=== PATIENT | male | born 1990 | race Two or more races ===

== ENCOUNTER 2020-12-05 19:19 | Emergency (ER) | payer OTHER ==
[~2020-12-05] VITALS: Ht 172.7 cm; Wt 86.2 kg
[2020-12-05 20:36] LABS: Urine Bacteria NONE SEEN /hpf (None Seen); Urine Blood Negative /uL (Negative); Urine Mucus FEW (None Seen); Urine Specific Gravity 1.009 (1.001-1.035); Urine WBC <1 /hpf (0 - 3)
[2020-12-05 20:53] LABS: Amphetamine Screen, Urine NEGATIVE (NEGATIVE); Barbiturate Scree,Urine NEGATIVE (NEGATIVE); Benzodiazephine Screen, Urine NEGATIVE (NEGATIVE); Cannabinoid Screen, Urine NEGATIVE (NEGATIVE); Cocaine Screen, Urine NEGATIVE (NEGATIVE); Opiate Scree,Urine NEGATIVE (NEGATIVE); Phencyclidine Screen, Urine NEGATIVE (NEGATIVE)
[2020-12-05 21:04] LABS: Basophils # (auto) 0 10 ^3/uL (0-0.2); Basophils % (auto) 0.5 % (0.0-2.0); Eosinophils # (auto) 0.4 10 ^3/uL (0-0.8); Eosinophils % (auto) 4.9 % (0.0-7.0); Hematocrit 44.4 % (41.0-53.0); Lymphocytes # (auto) 2.4 10 ^3/uL (0.4-5.4); Lymphocytes % (auto) 32.1 % (10.0-50.0); Mean Corpuscular Hemoglobin 30.7 pg (28.0-32.0); Mean Corpuscular Hgb Conc. 33.8 g/dL (32.0-36.0); Mean Corpuscular Volume 90.8 fL (80.0-100.0); Monocytes # (auto) 0.8 10 ^3/uL (0-1.3); Monocytes % (auto) 10.4 % (0.0-12.0); Neutrophils # (auto) 3.8 10 ^3/uL (1.6-8.6); Neutrophils % (auto) 52.1 % (37.0-80.0); Nucleated Red Blood Cells % 0.2 %; Platelet Count (auto) 370 10^3/uL (140-450); Red Blood Cells 4.89 10^6/uL (4.5-5.90); White Blood Cell 7.4 10^3/uL (4.4-10.8)
[2020-12-05 21:21] LABS: Potassium 3.7 mmol/L (3.5-5.1)
[2020-12-05 21:25] LABS: Salicylate < 1.7 mg/dL (2.8-20.0)
[2020-12-05 21:26] LABS: Acetaminophen < 2.0 ug/mL (10-30)
[2020-12-05 21:27] LABS: Albumin 3.8 g/dL (3.4-5.0); BUN/Creatinine Ratio 14.8; Magnesium 2.3 mg/dL (1.6-2.6)
[2020-12-05 21:29] LABS: Bilirubin, Total 0.2 mg/dL (0.2-1.0); Total Protein 7.9 g/dL (6.4-8.2)
[2020-12-06 08:04] VITALS: BP 131/80
== END 2020-12-06 08:41 | disposition home or self-care (01) ==
LOC: EDBD 19:19 → ER 19:19
DX: F10.129 Alcohol abuse with intoxication, unspecified (principal); R41.82 Altered mental status, unspecified; Y90.8 Blood alcohol level of 240 mg/100 ml or more
CPT/HCPCS: 36415; 80053; 80307; 80320; 80329; 81001; 83735; 85025

== ENCOUNTER 2023-03-30 08:56 | Emergency (ER) | payer MEDICAID, OTHER ==
[~2023-03-30] VITALS: Ht 177.8 cm; Wt 81.8 kg
[2023-03-30 09:27] LABS: Basophils # (auto) 0 10 ^3/uL (0-0.2); Basophils % (auto) 0.3 % (0.0-2.0); Eosinophils # (auto) 0.4 10 ^3/uL (0-0.8); Eosinophils % (auto) 5.5 % (0.0-7.0); Hematocrit 42.9 % (41.0-53.0); Hemoglobin 14.6 g/dL (13.5-17.5); Lymphocytes # (auto) 1.9 10 ^3/uL (0.4-5.4); Lymphocytes % (auto) 27.8 % (10.0-50.0); Mean Corpuscular Hemoglobin 30.2 pg (28.0-32.0); Mean Corpuscular Volume 88.8 fL (80.0-100.0); Monocytes % (auto) 14.8 % (0.0-12.0); Neutrophils # (auto) 3.6 10 ^3/uL (1.6-8.6); Neutrophils % (auto) 51.6 % (37.0-80.0); Red Blood Cells 4.83 10^6/uL (4.5-5.90); Red Cell Distribution Width 13.9 % (11.8-14.3)
[2023-03-30] MEDS ORDERED: ASPirin 325 MG TAB PO ONE (09:30)
[2023-03-30 09:36] LABS: Alanine Aminotransferase 40 U/L (7-40); Albumin 4.9 g/dL (3.2-4.8); Alkaline Phosphatase 94 U/L (46-116); Amylase 62 U/L (30-118); Anion Gap 6 (5-15); Aspartate Aminotransferase 76 U/L (13-40); BUN/Creatinine Ratio 14.5 (10.0-20.0); Blood Urea Nitrogen 11 mg/dL (9-23); Calcium 9.2 mg/dL (8.7-10.4); Carbon Dioxide 27 mmol/L (20-30); Chloride 106 mmol/L (98-107); Glucose 100 mg/dL (74-106); Lipase 31 U/L (12-53); Magnesium 1.9 mg/dL (1.6-2.6); Potassium 3.6 mmol/L (3.5-5.1); Sodium 139 mmol/L (136-145)
[2023-03-30 09:37] LABS: Bilirubin, Total 0.5 mg/dL (0.2-1.0)
[2023-03-30 09:40] LABS: INR 0.98 (0.9-1.15); Partial Thromboplastin Time 26.7 SEC (24.5-34.5); Prothrombin Time 10.3 sec (9.3-11.8)
[2023-03-30 09:47] VITALS: PULSE 100; RESP 20; O2SAT 96
[2023-03-30 11:17] LABS: Urine Bacteria NONE SEEN /hpf (None Seen); Urine Blood Negative /uL (Negative); Urine Clarity Clear (Clear); Urine Mucus FEW (None Seen); Urine Protein, UAD Negative (Negative); Urine Specific Gravity 1.014 (1.001-1.035); Urine Urobilinogen Normal (Negative); Urine WBC 1 /hpf (0 - 3); Urine pH 6.5 (5.0-8.0)
[2023-03-30 11:23] LABS: Urine Color Yellow (Yellow)
[2023-03-30] MEDS ORDERED: PANT40TA2 PO ×2 (11:55→13:04)
[2023-03-30 12:02] VITALS: TEMP 97.8
[2023-03-30 12:07] LABS: Amphetamine Screen, Urine Neg (NEGATIVE); Barbiturate Scree,Urine Neg (NEGATIVE); Benzodiazephine Screen, Urine Neg (NEGATIVE); Cocaine Screen, Urine Neg (NEGATIVE); Opiate Scree,Urine Neg (NEGATIVE); Phencyclidine Screen, Urine Neg (NEGATIVE)
[2023-03-30 12:08] LABS: Cannabinoid Screen, Urine Neg (NEGATIVE)
[2023-03-30 13:04] VITALS: BP 125/92; PULSE 92; RESP 14; O2SAT 97
[2023-03-30] MEDS ORDERED: LEVO500T91 PO (13:04)
[2023-03-30] MEDS ORDERED: CLIN300C70 PO (13:04)
== END 2023-03-30 13:13 | disposition home or self-care (01) ==
LOC: ER 08:56 → EDBD 08:56 → ER 13:11
DX: K29.70 Gastritis, unspecified, without bleeding (principal); L03.114 Cellulitis of left upper limb; Z79.899 Other long term (current) drug therapy
CPT/HCPCS: 36415; 71045; 80053; 80307; 81001; 82150; 83690; 83735; 83880; 84484; 85025; 85610; 85730; 93005

== ENCOUNTER 2023-07-09 11:58 | Emergency (ER) | payer MEDICAID ==
[~2023-07-09] VITALS: Ht 177.8 cm; Wt 79.3 kg
[~2023-07-09 11:58] MED LIST: CLIN300C70 PO; LEVO500T91 PO; PANT40TA2 PO
[2023-07-09 12:09] VITALS: BP 135/71; PULSE 120; RESP 16; O2SAT 98
== END 2023-07-09 15:16 | disposition home or self-care (01) ==
LOC: ER 11:58
DX: L03.113 Cellulitis of right upper limb (principal); Z79.2 Long term (current) use of antibiotics; Z79.899 Other long term (current) drug therapy

== ENCOUNTER 2023-07-10 14:30 | Emergency (ER) | payer MEDICAID ==
[~2023-07-10] VITALS: Ht 177.8 cm; Wt 80.2 kg
[2023-07-10 16:34] VITALS: TEMP 97.2
[2023-07-10 17:06] VITALS: BP 105/72; PULSE 101; RESP 18; O2SAT 100
== END 2023-07-10 17:15 | disposition home or self-care (01) ==
LOC: ER 14:30
DX: Z48.00 Encounter for change or removal of nonsurgical wound dressing (principal)

== ENCOUNTER 2023-07-16 16:27 | Emergency (ER) | payer MEDICAID ==
[~2023-07-16] VITALS: Ht 177.8 cm; Wt 82.9 kg
[2023-07-16 17:18] VITALS: BP 154/60; PULSE 89; RESP 18; O2SAT 97
== END 2023-07-16 21:32 | disposition left against medical advice (07) ==
LOC: ER 16:27
DX: L02.413 Cutaneous abscess of right upper limb (principal); Z53.21 Procedure and treatment not carried out due to patient leaving prior to being seen by health care provider

== ENCOUNTER → 2023-11-27 | Outpatient (CLI) | payer MEDICAID ==
[~2023-11-27] MED LIST changes: +CLIN1CAP70 PO; -CLIN300C70 PO
[2023-11-27 10:12] LABS: Urine Bacteria None Seen /hpf (None Seen)
[2023-11-27 10:17] LABS: Basophils # (auto) 0 10 ^3/uL (0-0.2); Basophils % (auto) 0.4 % (0.0-2.0); Eosinophils # (auto) 0.3 10 ^3/uL (0-0.8); Eosinophils % (auto) 4.7 % (0.0-7.0); Hematocrit 44.3 % (41.0-53.0); Hemoglobin 15.2 g/dL (13.5-17.5); Lymphocytes # (auto) 1.6 10 ^3/uL (0.4-5.4); Lymphocytes % (auto) 25.5 % (10.0-50.0); Mean Corpuscular Hemoglobin 29.9 pg (28.0-32.0); Mean Corpuscular Hgb Conc. 34.2 g/dL (32.0-36.0); Mean Corpuscular Volume 87.6 fL (80.0-100.0); Monocytes # (auto) 0.8 10 ^3/uL (0-1.3); Monocytes % (auto) 11.8 % (0.0-12.0); Neutrophils # (auto) 3.7 10 ^3/uL (1.6-8.6); Neutrophils % (auto) 57.6 % (37.0-80.0); Nucleated Red Blood Cells % 0.1 %; Red Blood Cells 5.06 10^6/uL (4.5-5.90); Red Cell Distribution Width 14.1 % (11.8-14.3); White Blood Cell 6.4 10^3/uL (4.4-10.8)
[2023-11-27 10:31] LABS: Urine Blood Negative /uL (Negative); Urine Clarity Clear (Clear); Urine Color Yellow (Yellow); Urine Mucus FEW (None Seen); Urine Protein, UAD TRACE (Negative); Urine Specific Gravity 1.029 (1.001-1.035); Urine Urobilinogen Normal (Negative); Urine WBC 1 /hpf (0 - 3)
[2023-11-27 11:02] LABS: Alanine Aminotransferase 24 U/L (7-40); Albumin 4.9 g/dL (3.2-4.8); Alkaline Phosphatase 112 U/L (46-116); Anion Gap 6 (5-15); BUN/Creatinine Ratio 13.5 (10.0-20.0); Blood Urea Nitrogen 12 mg/dL (9-23); Carbon Dioxide 28 mmol/L (20-30); Chloride 105 mmol/L (98-107); Glucose 90 mg/dL (74-106); LDL Cholesterol 103 mg/dL (< 100); Sodium 139 mmol/L (136-145); Triglycerides 180 mg/dL (< 150)
[2023-11-27 11:03] LABS: Aspartate Aminotransferase 23 U/L (13-40); Bilirubin, Total 1.7 mg/dL (0.2-1.0); Cholesterol 196 mg/dL (< 200); HDL Cholesterol 76 mg/dL (40-59); Total Protein 7.8 g/dL (5.7-8.2)
[2023-11-28 08:17] LABS: RPR Non Reactive (Non Reactive)
[2023-11-28 21:06] LABS: Chlamydia Trachomatis, NAA Negative (Negative); Neisseria gonorrhoeae, NAA Negative (Negative)
== END | disposition home or self-care (01) ==
LOC: LAB 09:52
PROVIDERS: ATTEND Student in an Organized Health Care Education/Training Program
DX: Z00.01 Encounter for general adult medical examination with abnormal findings (principal); F10.20 Alcohol dependence, uncomplicated; E55.9 Vitamin D deficiency, unspecified
CPT/HCPCS: 36415; 80053; 80061; 81001; 82306; 82977; 83036; 84443; 85025; 86592

== ENCOUNTER 2024-06-15 16:10 | Inpatient (IN) | payer MEDICAID ==
[~2024-06-15] VITALS: Ht 172.7 cm; Wt 75.0 kg
[2024-06-15 16:45] VITALS: PULSE 128; RESP 26; O2SAT 100
[2024-06-15 17:37] LABS: Anion Gap 14 (5-15); Calcium 10.1 mg/dL (8.7-10.4); Carbon Dioxide 22 mmol/L (20-31); Chloride 104 mmol/L (98-107); Magnesium 2.1 mg/dL (1.6-2.6); Potassium 3.6 mmol/L (3.5-5.1); Sodium 140 mmol/L (136-145)
[2024-06-15 17:38] LABS: Aspartate Aminotransferase 37 U/L (13-40); BUN/Creatinine Ratio 9.1 (10.0-20.0); Bilirubin, Total 0.5 mg/dL (0.2-1.0); Blood Urea Nitrogen 11 mg/dL (9-23); Salicylate < 3.0 mg/dL (-30)
[2024-06-15 17:39] LABS: Alanine Aminotransferase 42 U/L (7-40); Albumin 5.1 g/dL (3.2-4.8); Alkaline Phosphatase 121 U/L (46-116); Glucose 131 mg/dL (74-106)
[2024-06-15 17:43] LABS: Basophils # (auto) 0 10 ^3/uL (0-0.2); Basophils % (auto) 0.2 % (0.0-2.0); Eosinophils # (auto) 0 10 ^3/uL (0-0.8); Hematocrit 44.3 % (41.0-53.0); Hemoglobin 15.2 g/dL (13.5-17.5); Lymphocytes # (auto) 1.5 10 ^3/uL (0.4-5.4); Mean Corpuscular Hemoglobin 30.2 pg (28.0-32.0); Mean Corpuscular Hgb Conc. 34.4 g/dL (32.0-36.0); Monocytes # (auto) 1.9 10 ^3/uL (0-1.3); Monocytes % (auto) 8.7 % (0.0-12.0); Neutrophils # (auto) 18.3 10 ^3/uL (1.6-8.6); Neutrophils % (auto) 84.1 % (37.0-80.0); Nucleated Red Blood Cells % 0.1 %; Platelet Count (auto) 406 10^3/uL (140-450); Red Blood Cells 5.03 10^6/uL (4.5-5.90); Red Cell Distribution Width 14.3 % (11.8-14.3); White Blood Cell 21.7 10^3/uL (4.4-10.8)
[2024-06-15 17:44] VITALS: BP 133/71; PULSE 118; RESP 11; TEMP 97.3; O2SAT 95
[2024-06-15 17:45] LABS: Lactic Acid w/Reflex 4.4 mmol/L (0.4-2.0)
[2024-06-15 17:55] LABS: Blood Alcohol < 3.0 mg/dL (<10)
--- NOTE | 2024-06-15 18:12 | ED.PDOC ---
History of Present Illness HPI Comments 33 y/o M, with a Hx of alcohol abuse, is BIBA for c/o ALOC s/p possible isopropyl alcohol poisoning, today. Per EMS report, patient's mother called after returning to the patient's room and finding him on the floor, altered, with approximately 3/4th of an isopropyl alcohol bottle empty, today. Patient's mother endorses patient, possible, ingesting said bottle, due to it being recall "full" prior to leaving and checking in on the patient, later. On scene, EMS found patient GCS14, with isopropyl bottle and a syringe cap w/o a syringes nearby the patient. Patient was reported to have been noncompliant with answering questions and was restrained, due to being uncooperative with EMS staff in getting onto the gurney. He was stated to have PERRL, with a blood glucose of 127 and a pulse rate of 115, with all remaining vitals within normal limits. Upon arrival to ED, patient yelling "mom" or "please" and occasionally nods to answer questions. Unable to get additional Hx, due to patient's condition. Chief Complaint: ALOC Time Seen by MD: 16:30 Primary Care Provider: NONE Reviewed Notes: Nurses Notes, Linter Operator Notes, Medications, Allergies Allergies: Coded Allergies: NO KNOWN ALLERGIES (Unverified , 12/05/20) Home Meds Active Scripts Pantoprazole Sodium Sesquihydr (Protonix) 40 Mg Tab, 40 MG PO DAILY for 7 Days, #7 TAB Prov:RONY GOMEZ MD 03/30/23 Clindamycin Hcl (Clindamycin Hcl) 300 Mg Cap, 1 CAP PO TID for 7 Days, #21 CAP Prov:RONY GOMEZ MD 03/30/23 Levofloxacin Hemihydrate (LEVOFLOXACIN) 500 Mg Tab, 500 MG PO DAILY for 7 Days, #7 MG Prov:RONY GOMEZ MD 03/30/23 Pantoprazole Sodium Sesquihydr (Protonix) 40 Mg Tab, 40 MG PO DAILY for 10 Days, #10 TAB Prov:RONY GOMEZ MD 03/30/23 Information Source: Patient, Emergency Med Personnel Mode of Arrival: EMS Severity: Moderate Timing: Hours Duration: Since onset Prehospital treatment: 12 Lead EKG, Accucheck, Vest Busheler Past Medical History Past Medical History (Other): previous nose fracture Surgical History: Denies all surgeries Family History Family History: Reviewed,noncontributory to illness, Unknown Social History Smoker: Non-Smoker Alcohol: Heavy Drugs: Denies Drug Use Lives In: Home Neurological: reports: others (ALOC) Physical Exam Exam Comments limited due to patient's condition; patient yelling "mom" or "please" and occasionally nods to answer questions; appears agitated and confused; in 4-point restraints, due to agitation General Appearance: Other (refer to exam comments for deferral reason for physical examination ) HEENT: PERRL/EOMI Neck: Normal Inspection Respiratory: No Accessory Muscle Use, No Respiratory Distress Cardiovascular: Tachycardia Breast Exam: Deferred Gastrointestinal: No Organomegaly Genitalia: Deferred Pelvic: Deferred Rectal: Deferred Extremities: No pedal edema Musculoskeletal : Apperance: Normal Neurologic: Other (GCS 14, confused, repetitive speaking) Cerebellar Function: Unable to Test, NOT DONE Reflexes: NOT DONE Skin: Warm Lymphatic: NOT DONE Was a procedure done? Was a procedure done?: No Differential Dx Considerations may include: isopropyl alcohol poisoning X-Ray, Labs, Meds, VS Vital Signs Date Time Temp Pulse Resp B/P (MAP) Pulse Ox O2 Delivery O2 Flow Rate FiO2 06/15/24 16:45 97.3 115 11 133/71 (91) 95 97.3 06/15/24 16:18 97.4 97 18 134/84 (101) 98 Lab Test 06/15/24 17:08 Range/Units White Blood Count 21.7 H 4.4-10.8 10^3/uL Red Blood Count 5.03 4.5-5.90 10^6/uL Hemoglobin 15.2 13.5-17.5 g/dL Hematocrit 44.3 41.0-53.0 % Mean Corpuscular Volume 88.0 80.0-100.0 fL Mean Corpuscular Hemoglobin 30.2 28.0-32.0 pg Mean Corpuscular Hemoglobin Concent 34.4 32.0-36.0 g/dL Red Cell Distribution Width 14.3 11.8-14.3 % Platelet Count 406 140-450 10^3/uL Mean Platelet Volume 7.1 6.9-10.8 fL Neutrophils (%) (Auto) 84.1 H 37.0-80.0 % Lymphocytes (%) (Auto) 7.0 L 10.0-50.0 % Monocytes (%) (Auto) 8.7 0.0-12.0 % Eosinophils (%) (Auto) 0.0 0.0-7.0 % Basophils (%) (Auto) 0.2 0.0-2.0 % Neutrophils # (Auto) 18.3 H 1.6-8.6 10 ^3/uL Lymphocytes # (Auto) 1.5 0.4-5.4 10 ^3/uL Monocytes # (Auto) 1.9 H 0-1.3 10 ^3/uL Eosinophils # (Auto) 0 0-0.8 10 ^3/uL Basophils # (Auto) 0 0-0.2 10 ^3/uL Nucleated Red Blood Cells 0.1 % Sodium Level 140 136-145 mmol/L Potassium Level 3.6 3.5-5.1 mmol/L Chloride Level 104 98-107 mmol/L Carbon Dioxide Level 22 20-31 mmol/L Anion Gap 14 5-15 Blood Urea Nitrogen 11 9-23 mg/dL Creatinine 1.21 0.700-1.30 mg/dL Glomerular Filtration Rate Calc 81 >90 mL/min BUN/Creatinine Ratio 9.1 L 10.0-20.0 Serum Glucose 131 H 74-106 mg/dL Lactic Acid Level 4.4 *H 0.4-2.0 mmol/L Calcium Level 10.1 8.7-10.4 mg/dL Magnesium Level 2.1 1.6-2.6 mg/dL Total Bilirubin 0.5 0.2-1.0 mg/dL Aspartate Amino Transferase (AST) 37 13-40 U/L Alanine Aminotransferase (ALT) 42 H 7-40 U/L Alkaline Phosphatase 121 H 46-116 U/L Total Protein 8.0 5.7-8.2 g/dL Albumin 5.1 H 3.2-4.8 g/dL Salicylates Level < 3.0 -30 mg/dL Acetaminophen Level Pending Plasma/Serum Blood Alcohol Pending 33-year-old male presents here by EMS for ingestion of isopropyl alcohol. Patient was seen immediately upon his arrival by myself. He was found to be tachycardic and altered on scene. Mother states a full bottle of isopropyl alcohol was there upon her leaving the house and when she returned greater than half bottle was gone. Patient does not give much history. He is a GCS 14. Poison control was immediately contacted. They state they are not sure that he ingested isopropyl alcohol given he is agitated and yelling versus being comatose. However I am concerned given his GCS and tachycardia. Blood work has been done by myself including lactic acid. At this time blood work demonstrates a leukocytosis of 21, a creatinine of 1.21, lactic acid of 4.4. We are still pending his UDS acetaminophen level and serum blood alcohol level. I have written for IV fluids. I have also written for CT scan of the brain. Patient is currently in 4 point restraints given his agitation. At this time hospitalist team has been contacted for admission. Time of 1ST Reevaluation: 17:00 Reevaluation 1ST: Unchanged Patient Education/Counseling: Other (patient is altered secondary to isopropyl alcohol ) Family Education/Counseling: No Family Present Departure 1 Departure Time of Disposition: 18:00 Impression: Primary Impression: Isopropyl alcohol poisoning Additional Impression: Altered mental status Qualified Codes: R41.82 - Altered mental status, unspecified Disposition: 09 ADMITTED INPATIENT Admit to: [facility] Condition: Guarded Critical Care Note Critical Care Time?: Yes (45 min-critical care time only) Critical care comment: Time spent evaluating the patient immediately upon his arrival, multiple re- evaluations, evaluating his lab work, speaking to poison control Stability Stability form required: No Heart Score Heart Score: Heart Score Response (Comments) Value History N/A 0 EKG N/A 0 Age N/A 0 Risk Factors N/A 0 Troponin N/A 0 Total 0 I personally scribed for SKYE MADRIGAL MD ([email or web address]) on 06/15/24 at 18:12. Electronically submitted by Rowdy Flaherty ([email or web address]). SKYE MADRIGAL MD Jun 15, 2024 18:12
[2024-06-15 18:29] LABS: Acetaminophen < 2.0 UG/ML (10.0-20.0)
[2024-06-15] MEDS: SODIUM CHLORIDE 0.9% 1,000 ML IVB ONE (18:48)
--- NOTE | 2024-06-15 19:12 | DVHHP2 ---
History of Present Illness Reason for Visit: Altered mental status History of Present Illness The patient is a 33-year-old male who denies past medical history presented to [facility] ED for evaluation of alcohol abuse. As reported by EMS, patient's mother call after returning to the patient's room, finding him on the floor altered with empty bottle of an isopropyl alcohol. On scene, EMS found patient GCS14, with isopropyl bottle and a syringe cap without a syringes nearby the patient. Patient was reported to have been noncompliant with answering questions and was restrained, due to being uncooperative with EMS staff in getting onto the gurney EN route to our facility ED. patient was seen and evaluated in the ED, laboratory data shows WBC 21.7, platelets 406, sodium 140, potassium 3.6, BUN 13, creatinine 1.21, glucose 131, lactic acid 4.4, AST 37, ALT 42, albumin 5.1, blood pressure 133/71, heart rate 96, temperature 97.4 F, O2 saturation 95% on room air. Patient was given IV fluid normal saline, please see medication orders section in the computer. On my assessment, patient denied chest pain, no headache, no dizziness, no diaphoresis, no shortness of breath, no nausea, no vomiting, no fever, no chills. Patient was admitted for further evaluation and medical management. Past Medical History Previous nose fracture Past Surgical History Denies all surgeries Family History Reviewed, noncontributory to the management of this case. Past Social History The patient lives at home, drinks alcohol heavily, denies smoking or illicit drugs abuse. Review of Systems Constitutional: Yes: Weakness; No: Fever, Chills, Sweats, Malaise, Other Eyes: No: Pain, Vision change, Conjunctivae inflammation, Eyelid inflammation, Other, Redness ENT: No: Ear pain, Ear discharge, Nose pain, Nose discharge, Nose congestion, Mouth pain, Mouth swelling, Throat pain, Throat swelling, Other Respiratory: No: Cough, Dry, Shortness of breath, SOB with excertion, Wheezing, Hemoptysis, Pleuritic Pain, Sputum, Wheezing, Other Cardiovascular: No: Chest Pain, Palpitations, Orthopnea, Paroxysmal Noc. Dyspnea, Edema, Lt Headedness, Other Gastrointestinal: No: Nausea, Vomiting, Abdominal Pain, Diarrhea, Constipation, Melena, Hematochezia, Other Genitourinary: No Dysuria, No Frequency, No Incontinence, No Hematuria, No Retention, No Other Musculoskeletal: No: other, neck pain, shoulder pain, arm pain, back pain, hand pain, leg pain, foot pain Skin: No: Rash, Lesions, Jaundice, Bruising, Other Neurological: Other (Altered level of consciousness); No: Weakness, Numbness, Incoordination, Change in speech, Confusion, Seizures Allergies: Coded Allergies: NO KNOWN ALLERGIES (Unverified , 12/05/20) Exam Vital Signs Vital Signs Date Time Temp Pulse Resp B/P (MAP) Pulse Ox O2 Delivery O2 Flow Rate FiO2 06/15/24 17:44 118 11 95 Room Air* 0 21 06/15/24 17:44 97.3 133/71 (91) 97.3 General Appearance: Alert, Oriented X3, Cooperative, No acute distress HEENT: Atraumatic, PERRLA, EOMI, Mucous membr. moist/pink Respiratory: Clear to auscultation, Normal air movement Cardiovascular: Regular rate, Normal S1, Normal S2, No murmurs Abdominal: Normal bowel sounds, Soft, No tenderness, No hepatospenomegaly, No masses Extremities: No clubbing, No cyanosis, No edema, Normal pulses, No tenderness/swelling Skin: No rashes, No breakdown, No significant lesion Neuro: Normal speech, Normal tone, Sensation intact, Cranial nerves 3-12 NL, Reflexes 2+, Other (Generalized weakness) Psych/Mental Status: Mood NL, Other (Altered mental status) Labs/Xrays Labs Test 06/15/24 17:08 Range/Units White Blood Count 21.7 H 4.4-10.8 10^3/uL Red Blood Count 5.03 4.5-5.90 10^6/uL Hemoglobin 15.2 13.5-17.5 g/dL Hematocrit 44.3 41.0-53.0 % Mean Corpuscular Volume 88.0 80.0-100.0 fL Mean Corpuscular Hemoglobin 30.2 28.0-32.0 pg Mean Corpuscular Hemoglobin Concent 34.4 32.0-36.0 g/dL Red Cell Distribution Width 14.3 11.8-14.3 % Platelet Count 406 140-450 10^3/uL Mean Platelet Volume 7.1 6.9-10.8 fL Neutrophils (%) (Auto) 84.1 H 37.0-80.0 % Lymphocytes (%) (Auto) 7.0 L 10.0-50.0 % Monocytes (%) (Auto) 8.7 0.0-12.0 % Eosinophils (%) (Auto) 0.0 0.0-7.0 % Basophils (%) (Auto) 0.2 0.0-2.0 % Neutrophils # (Auto) 18.3 H 1.6-8.6 10 ^3/uL Lymphocytes # (Auto) 1.5 0.4-5.4 10 ^3/uL Monocytes # (Auto) 1.9 H 0-1.3 10 ^3/uL Eosinophils # (Auto) 0 0-0.8 10 ^3/uL Basophils # (Auto) 0 0-0.2 10 ^3/uL Nucleated Red Blood Cells 0.1 % Sodium Level 140 136-145 mmol/L Potassium Level 3.6 3.5-5.1 mmol/L Chloride Level 104 98-107 mmol/L Carbon Dioxide Level 22 20-31 mmol/L Anion Gap 14 5-15 Blood Urea Nitrogen 11 9-23 mg/dL Creatinine 1.21 0.700-1.30 mg/dL Glomerular Filtration Rate Calc 81 >90 mL/min BUN/Creatinine Ratio 9.1 L 10.0-20.0 Serum Glucose 131 H 74-106 mg/dL Lactic Acid Level 4.4 *H 0.4-2.0 mmol/L Calcium Level 10.1 8.7-10.4 mg/dL Magnesium Level 2.1 1.6-2.6 mg/dL Total Bilirubin 0.5 0.2-1.0 mg/dL Aspartate Amino Transferase (AST) 37 13-40 U/L Alanine Aminotransferase (ALT) 42 H 7-40 U/L Alkaline Phosphatase 121 H 46-116 U/L Total Protein 8.0 5.7-8.2 g/dL Albumin 5.1 H 3.2-4.8 g/dL Salicylates Level < 3.0 -30 mg/dL Acetaminophen Level < 2.0 L 10.0-20.0 UG/ML Plasma/Serum Blood Alcohol < 3.0 <10 mg/dL Assessment/Plan Assessment/Plan Isopropyl alcohol poisoning Altered mental status Hyperglycemia Altered mental status, unspecified Leukocytosis, unspecified Generalized weakness Elevated lactic acid level Plan 1. Admit to telemetry unit 2. Breathing treatment 3. Pain control management 4. Management of fluids and electrolytes 5. Consultation for hospitalist 6. Diagnostic tests chest x-ray 7. DVT prophylaxis-on SCDs 8. Repeat labs CBC, CMP in a.m. 9. Continue with current medical management 10. Treatment plan discussed with patient and RN. Patient verbalized understanding. Plan discussed with: Patient, Other (RN) Problem List: (1) Isopropyl alcohol poisoning (2) Altered mental status (3) Elevated lactic acid level (4) Leukocytosis, unspecified (5) Hyperglycemia (6) Altered mental status, unspecified (7) Generalized weakness Date of Service: Jun 15, 2024 Billing Provider: GEOFF JARAMILLO DNP Common Visit Codes: [id number]-CXUPROI INP/OBS CARE (HIGH) GEOFF JARAMILLO DNP Jun 15, 2024 19:11
[2024-06-15] MEDS ORDERED: ACETAMINOPHEN 325 MG TAB PO PRN (19:15)
[2024-06-15] MEDS ORDERED: NITROGLYCERIN 0.4 MG SL TAB SL PRN (19:15)
[2024-06-15] MEDS ORDERED: ONDANSETRON HCL 4 MG/2 ML VIAL IV PRN (19:15)
[2024-06-15] MEDS ORDERED: DOCUSATE SOD 100 MG CAP PO PRN (19:15)
[2024-06-15] MEDS ORDERED: MORPHINE SULFATE INJ 2 MG/ml SYRG IV PRN (19:15)
[2024-06-15] MEDS ORDERED: HYDROcodone-ACET 5/325MG TAB PO PRN (19:15)
[2024-06-15 20:00] VITALS: PULSE 114
[2024-06-15] MEDS: MULTIPLE VITAMIN TAB PO ONE (23:16)
[2024-06-15] MEDS: THIAMINE 100mg/ml INJ (200mg/2ml VIAL) IM ONE (23:17)
[2024-06-15] MEDS: PANTOPRAZOLE 40 MG/10 ML VIAL INJ IV ONE (23:17)
[2024-06-15] MEDS: FOLIC ACID 1 MG in D5W 5% 50 ML INJ ONE (23:41)
[2024-06-15] MEDS: LACTATED RINGER'S 1,000 ML IV SCH (23:42)
[2024-06-16] MEDS ORDERED: THIAMINE 100mg/ml INJ (200mg/2ml VIAL) IV SCH (10:00)
[2024-06-16] MEDS ORDERED: PANTOPRAZOLE 40 MG/10 ML VIAL INJ IV SCH (10:00)
[2024-06-16] MEDS ORDERED: MULTIPLE VITAMIN TAB PO SCH (10:00)
[2024-06-16] MEDS ORDERED: FOLIC ACID 1 MG in D5W 5% 50 ML INJ SCH (10:00)
== END 2024-06-16 00:26 | disposition left against medical advice (07) | DRG 816 ==
LOC: ER 16:10 → EDBD 16:10 → TELE 19:05
PROVIDERS: ADMIT Nurse Practitioner Family; ATTEND Nurse Practitioner Family
DX: T51.2X1A Toxic effect of 2-Propanol, accidental (unintentional), initial encounter (principal); E87.20 Acidosis, unspecified; D72.829 Elevated white blood cell count, unspecified; R73.9 Hyperglycemia, unspecified; Z53.29 Procedure and treatment not carried out because of patient's decision for other reasons; Z79.899 Other long term (current) drug therapy; Z91.199 Patient's noncompliance with other medical treatment and regimen due to unspecified reason; Y92.89 Other specified places as the place of occurrence of the external cause; Y90.0 Blood alcohol level of less than 20 mg/100 ml
CPT/HCPCS: 36415; 80053; 80320; 80329; 83605; 83735; 85025; 99291; G0378; J2405; J2470; J7060

== ENCOUNTER 2025-03-10 23:08 | Emergency (ER) | payer MEDICAID ==
[~2025-03-10] VITALS: Ht 177.8 cm; Wt 78.0 kg
--- NOTE | 2025-03-11 00:25 | ED.PDOC ---
History of Present Illness HPI Comments 34 y/o M, with a history of gallstones, presents with c/c of nonradiating, diffused abdominal discomfort and bloat, with associated diarrhea. Patient endorses on onset of symptoms after eating his previous two meals, this morning and evening. He comments on symptoms feeling similar to when he had gallstones several years ago prior to having them removed. Diarrhea is reported to be constant. Patient denies having any nausea, vomiting, constipation, urinary symptoms, fever, chills, or further associated symptoms. Chief Complaint: Abdominal Pain Time Seen by MD: 23:50 Primary Care Provider: NONE Reviewed Notes: Nurses Notes, Medications, Allergies Allergies: Coded Allergies: NO KNOWN ALLERGIES (Unverified , 12/05/20) Home Meds Active Scripts Pantoprazole Sodium Sesquihydr (Protonix) 40 Mg Tab, 40 MG PO DAILY for 7 Days, #7 TAB Prov:RONY GOMEZ MD 03/30/23 Clindamycin Hcl (Clindamycin Hcl) 300 Mg Cap, 1 CAP PO TID for 7 Days, #21 CAP Prov:RONY GOMEZ MD 03/30/23 Levofloxacin Hemihydrate (LEVOFLOXACIN) 500 Mg Tab, 500 MG PO DAILY for 7 Days, #7 MG Prov:RONY GOMEZ MD 03/30/23 Pantoprazole Sodium Sesquihydr (Protonix) 40 Mg Tab, 40 MG PO DAILY for 10 Days, #10 TAB Prov:RONY GOMEZ MD 03/30/23 Information Source: Patient Mode of Arrival: EMS Past Medical History PAST MEDICAL HISTORY: Denies Surgical History: Denies all surgeries Family History Family History: Reviewed,noncontributory to illness, Unknown Social History Smoker: Non-Smoker Alcohol: Heavy Drugs: Denies Drug Use Lives In: Home All Other Systems: Reviewed and Negative (Comprehensive systems review obtained and negative except for what is stated in the HPI.) Physical Exam General Appearance: No Apparent Distress, Normal HEENT: Normal ENT Inspection, Pharynx Normal, TMs Normal Neck: Full Range of Motion, Non-Tender, Normal, Normal Inspection Respiratory: Chest Non-Tender, Lungs Clear, No Accessory Muscle Use, No Respiratory Distress, Normal Breath Sounds Cardiovascular: No Edema, No JVD, No Murmur, No Gallop, Normal Peripheral Pulses, Regular Rate/Rhythm Breast Exam: Deferred Gastrointestinal: No Organomegaly, Non Tender, No Pulsatile Mass, Normal Bowel Sounds, Soft Genitalia: Deferred Pelvic: Deferred Rectal: Deferred Extremities: No calf tenderness, Normal capillary refill, Normal inspection, Normal range of motion, Non-tender, No pedal edema Musculoskeletal : Apperance: Normal Neurologic: Alert, corporate communications intern II-XII nml as Tested, No Motor Deficits, Normal Mood, No Sensory Deficits, Other (anxious affect ) Cerebellar Function: Normal Reflexes: Normal Skin: Dry, Normal Color, Warm Lymphatic: No Adenopathy Was a procedure done? Was a procedure done?: No Differential Dx Considerations may include: gastritis, gastroenteritis, GERD, PUD, spoiled food, dehydration, electrolyte imbalance, among others X-Ray, Labs, Meds, VS Vital Signs Date Time Temp Pulse Resp B/P (MAP) Pulse Ox O2 Delivery O2 Flow Rate FiO2 03/10/25 23:22 97.8 67 18 117/72 99 97.8 Lab Test 03/11/25 00:10 Range/Units White Blood Count 6.2 4.4-10.8 10^3/uL Red Blood Count 4.25 L 4.5-5.90 10^6/uL Hemoglobin 13.2 L 13.5-17.5 g/dL Hematocrit 37.9 L 41.0-53.0 % Mean Corpuscular Volume 89.0 80.0-100.0 fL Mean Corpuscular Hemoglobin 31.1 28.0-32.0 pg Mean Corpuscular Hemoglobin Concent 34.9 32.0-36.0 g/dL Red Cell Distribution Width 13.7 11.8-14.3 % Platelet Count 295 140-450 10^3/uL Mean Platelet Volume 8.1 6.9-10.8 fL Neutrophils (%) (Auto) 41.6 37.0-80.0 % Lymphocytes (%) (Auto) 33.1 10.0-50.0 % Monocytes (%) (Auto) 16.9 H 0.0-12.0 % Eosinophils (%) (Auto) 7.7 H 0.0-7.0 % Basophils (%) (Auto) 0.7 0.0-2.0 % Neutrophils # (Auto) 2.6 1.6-8.6 10 ^3/uL Lymphocytes # (Auto) 2.0 0.4-5.4 10 ^3/uL Monocytes # (Auto) 1.0 0-1.3 10 ^3/uL Eosinophils # (Auto) 0.5 0-0.8 10 ^3/uL Basophils # (Auto) 0 0-0.2 10 ^3/uL Nucleated Red Blood Cells 0.0 % Sodium Level 138 136-145 mmol/L Potassium Level 4.2 3.5-5.1 mmol/L Chloride Level 109 H 98-107 mmol/L Carbon Dioxide Level 22 20-31 mmol/L Anion Gap 7 5-15 Blood Urea Nitrogen 9 9-23 mg/dL Creatinine 0.73 0.700-1.30 mg/dL Glomerular Filtration Rate Calc 122 >90 mL/min BUN/Creatinine Ratio 12.3 10.0-20.0 Serum Glucose 89 74-106 mg/dL Calcium Level 8.3 L 8.7-10.4 mg/dL Current Medications Medications (Trade) Dose Ordered Sig/Dwain Route Start Time Stop Time Status Last Admin Al Hydrox/Mg Hydrox/Simethicone (Maalox Plus) 30 ml ONCE ONCE PO 03/11/25 00:00 03/11/25 00:01 DC 03/11/25 01:19 Ondansetron HCl (Zofran Po) 4 mg ONCE ONCE PO 03/11/25 00:00 03/11/25 00:01 DC 03/11/25 01:20 Famotidine (Pepcid Tablet) 20 mg ONCE ONCE PO 03/11/25 00:00 03/11/25 00:01 DC 03/11/25 01:20 Time of 1ST Reevaluation: 00:20 Reevaluation 1ST: Unchanged Patient Education/Counseling: Diagnosis, Treatment Family Education/Counseling: No Family Present SEPSIS Sepsis Screen Date sepsis recognized/suspect: Mar 10, 2025 Time Sepsis recognized/suspect: 2324 Recent Procedure: No On Antibiotic Therapy: No Respiratory Rate >20: No Heart Rate >90: No Temp<36 C (96.8 F) or >38.3 C: No SBP <90 or MAP <65 mmHG: No New Acute Mental Status Change: No Is the patient on CPAP, BIPAP,: No Vital Signs Date Time Temp Pulse Resp B/P (MAP) Pulse Ox O2 Delivery O2 Flow Rate FiO2 03/10/25 23:22 97.8 67 18 117/72 99 97.8 Laboratory Tests Test 03/11/25 00:10 White Blood Count 6.2 10^3/uL (4.4-10.8) Medications Medications Dose Ordered Sig/Dwain Route Start Time Stop Time Status Last Admin Dose Admin Al Hydrox/Mg Hydrox/Simethicone 30 ml ONCE ONCE PO 03/11/25 00:00 03/11/25 00:01 DC 03/11/25 01:19 Famotidine 20 mg ONCE ONCE PO 03/11/25 00:00 03/11/25 00:01 DC 03/11/25 01:20 Ondansetron HCl 4 mg ONCE ONCE PO 03/11/25 00:00 03/11/25 00:01 DC 03/11/25 01:20 Departure 1 Departure Time of Disposition: 01:55 (Patient is feeling significantly better. Patient's workup is benign. Patient likely has gastroenteritis. We will discharge patient home with outpatient follow up.) Impression: Primary Impression: Acute gastroenteritis Disposition: HOME / SELF CARE / HOMELESS Condition: Stable Additional Instructions: You likely have gastroenteritis. It is important to stay well hydrated and well rested. This usually resolves within 1 week. If your symptoms worsen or you have any other concerns please return to the ER. Discharged With: Self Critical Care Note Critical Care Time?: No Stability Stability form required: No Heart Score Heart Score: Heart Score Response (Comments) Value History N/A 0 EKG N/A 0 Age N/A 0 Risk Factors N/A 0 Troponin N/A 0 Total 0 I personally scribed for CONY SANTANA MD ([email or web address]) on 03/11/25 at 00:25. Electronically submitted by Rowdy Flaherty ([email or web address]). I personally scribed for CONY SANTANA MD ([email or web address]) on 03/11/25 at 00:33. Electronically submitted by Rowdy Flaherty ([email or web address]). CONY SANTANA MD Mar 11, 2025 00:25
[2025-03-11 00:44] LABS: Hematocrit 37.9 % (41.0-53.0); Hemoglobin 13.2 g/dL (13.5-17.5); Mean Corpuscular Hemoglobin 31.1 pg (28.0-32.0); Mean Corpuscular Volume 89.0 fL (80.0-100.0); Nucleated Red Blood Cells % 0.0 %; Potassium 4.2 mmol/L (3.5-5.1); Sodium 138 mmol/L (136-145)
[2025-03-11 00:45] LABS: Anion Gap 7 (5-15); Carbon Dioxide 22 mmol/L (20-31)
[2025-03-11 00:48] LABS: Calcium 8.3 mg/dL (8.7-10.4); Chloride 109 mmol/L (98-107)
[2025-03-11 00:50] LABS: BUN/Creatinine Ratio 12.3 (10.0-20.0); Blood Urea Nitrogen 9 mg/dL (9-23); Glucose 89 mg/dL (74-106)
[2025-03-11] MEDS: MAALOX PLUS or MAALOX 30 ML PO ONE (01:19)
[2025-03-11] MEDS: ONDANSETRON ODT 4 MG TAB PO ONE (01:20)
[2025-03-11] MEDS: FAMOTIDINE 20 MG TAB PO ONE (01:20)
[2025-03-11 02:30] VITALS: RESP 18; O2SAT 96
[2025-03-11 02:41] VITALS: BP 123/75; PULSE 81; RESP 18; TEMP 97.7; O2SAT 98
== END 2025-03-11 02:44 | disposition home or self-care (01) ==
LOC: ER 23:08 → EDBD 23:08 → ER 03-11 02:44
DX: K52.9 Noninfective gastroenteritis and colitis, unspecified (principal); F10.90 Alcohol use, unspecified, uncomplicated; Z79.899 Other long term (current) drug therapy; Y90.9 Presence of alcohol in blood, level not specified
CPT/HCPCS: 36415; 80048; 85025; 99284; Q0162

== ENCOUNTER 2025-06-02 12:09 | Outpatient (CLI) | payer MEDICAID ==
[2025-06-02 13:03] LABS: Hematocrit 43.2 % (41.0-53.0); Hemoglobin 15.1 g/dL (13.5-17.5); Mean Corpuscular Hemoglobin 30.7 pg (28.0-32.0); Mean Corpuscular Volume 87.8 fL (80.0-100.0); Nucleated Red Blood Cells % 0.1 %
[2025-06-02 13:06] LABS: Urine Protein, UAD TRACE (Negative)
[2025-06-02 13:16] LABS: Alanine Aminotransferase 28 U/L (7-40); Alkaline Phosphatase 84 U/L (46-116); Anion Gap 9 (5-15); BUN/Creatinine Ratio 19.1 (10.0-20.0); Blood Urea Nitrogen 18 mg/dL (9-23); Calcium 10.3 mg/dL (8.7-10.4); Carbon Dioxide 29 mmol/L (20-31); Chloride 104 mmol/L (98-107); Cholesterol 162 mg/dL (< 200); Glucose 75 mg/dL (74-106); Potassium 4.1 mmol/L (3.5-5.1); Sodium 142 mmol/L (136-145); Triglycerides 54 mg/dL (< 150)
[2025-06-02 13:21] LABS: Albumin 5.1 g/dL (3.2-4.8); Bilirubin, Total 1.4 mg/dL (0.2-1.0); HDL Cholesterol 72 mg/dL (40-59); Total Protein 8.3 g/dL (5.7-8.2)
[2025-06-02 16:07] LABS: Hepatitis A Total Antibody Positive (Negative); Hepatitis B Surface Antigen Negative (Negative)
[2025-06-02 16:09] LABS: Hepatitis C Antibody Positive (Negative)
[2025-06-03 16:07] LABS: Chlamydia Trachomatis, NAA Negative (Negative); Neisseria gonorrhoeae, NAA Negative (Negative)
== END 2025-06-02 17:00 | disposition home or self-care (01) ==
LOC: LAB 12:09
PROVIDERS: ATTEND Nurse Practitioner Family
DX: E55.9 Vitamin D deficiency, unspecified (principal); R73.03 Prediabetes; F10.20 Alcohol dependence, uncomplicated; Z11.3 Encounter for screening for infections with a predominantly sexual mode of transmission
CPT/HCPCS: 36415; 80053; 80061; 81001; 82306; 82607; 82746; 82977; 83036; 85025; 86703; 86704; 86706; 86708; 86780; 86803; 87340